=== PATIENT | female | born 1960 | race Caucasian/White ===

== ENCOUNTER 2016-07-16 20:42 | Inpatient (IN) | payer MEDICARE, MEDICAID ==
[~2016-07-16 20:42] MED LIST: ADVIL200 M1 PO; BP MED; DIABETA5 M1 PO; DICLOFENAC SODI75 MG PO; ENALAPRIL MALEA20 M1 PO; FLEXERIL10 MG PO; GLIPIZIDE10 M2 PO; GLUCOPHAGE500 MG PO; HYDROCHLOROTHIA25 M1 PO; IBUPROFEN100 M1 PO; JANUMET 50-1,01 EACH PO; LAMISIL250 MG PO; LANTUS SOL100 UNIT/1 SQ; METOPROLOL TART50 M2 PO; MOTRIN600 MG PO; NORCO 10/325 TA1 TAB PO; NORCO 5/325 TAB1 TAB PO; NORCO 7.5/3251 TAB PO; NORVASC5 M2 PO; PERCOCET 5/3251 TAB PO; PERCOCET 7.5-31 EAC1 PO; TYLENOL PM EX-S1 TAB PO; VASOTEC10 MG PO; VICODIN 5/500 T1 TAB PO
[2016-07-16 21:50] LABS: BASO % 0.3 % (0-2); EOS % 1.9 % (0-7); EOSINOPHIL ABSOLUTE COUNT 0.1 tho/cmm (0.0-0.7); HCT-HEMATOCRIT 42.7 % (34.0-49.0); HGB-HEMOGLOBIN 12.9 gm/dl (12.0-15.5); IMMATURE GRANULOCYTES ABSOLUTE 0.01 tho/cmm (0-0.03); IMMATURE GRANULOCYTES PERCENT 0.1 % (0-0.3); LYMPH % 13.9 % (20-45); MCH (MEAN CORPUSCULAR HGB) 29.5 pg (28.0-32.0); MCHC MEAN CORPUSCULAR HGB CONC 30.2 % (32.0-36.0); MCV (MEAN CELL VOLUME) 97.5 fl (82.0-96.0); MEAN PLATELET VOLUME 11.4 cmc (9.4-12.4); MONO % 8.8 % (0-12); MONOCYTE ABSOLUTE COUNT 0.6 tho/cmm (0.0-1.2); NEUTROPHIL ABSOLUTE COUNT 5.1 tho/cmm (1.6-8.0); NEUTROPHIL-AUTOMATED 5.1 tho/cmm (1.6-8.0); PLATELET COUNT 185 tho/cmm (150-450); RED BLOOD COUNT 4.38 mil/cmm (4.00-5.20); RED CELL DISTRIBUTION WIDTH 14.5 % (12.4-16.4); WHITE BLOOD COUNT 6.8 tho/cmm (4.0-10.0)
[2016-07-16 22:07] LABS: BLOOD UREA NITROGEN 67 mg/dl (6-24); CALCIUM 9.1 mg/dl (8.5-10.5); CARBON DIOXIDE-VENOUS 32 mmol/L (22-32); CHLORIDE 104 mmol/l (96-110); CREATININE 2.05 mg/dl (0.50-1.10); GLUCOSE 163 mg/dL (70-110); SODIUM 142 mmol/L (135-145); eGFR VALUE FOR BLACK 30 mL/Min
[2016-07-16 22:16] LABS: ANION GAP 12 mmol/L (0-20); MAGNESIUM 2.7 mg/dl (1.3-2.6); POTASSIUM 5.7 mmol/L (3.7-5.1)
[2016-07-16] MEDS ORDERED: ALL DAY ALLERGY10 M7 PO (22:48)
[2016-07-16] MEDS ORDERED: KLONOPIN0.5 M1 PO (22:49)
[2016-07-16] MEDS ORDERED: ASTAXANTHIN PO (22:49)
[2016-07-16] MEDS ORDERED: LASIX20 M1 PO (22:50)
[2016-07-16] MEDS ORDERED: TOPROL XL50 M1 PO (22:51)
[2016-07-16] MEDS ORDERED: LAMICTAL200 M2 PO (22:51)
[2016-07-16] MEDS ORDERED: PERCOCET 10-321 EACH PO (22:52)
[2016-07-16] MEDS ORDERED: POTASSIUM CHLO10 ME2 PO (22:53)
[2016-07-16] MEDS ORDERED: PROAIR RESPICL90 MCG INH (22:54)
[2016-07-16] MEDS ORDERED: RISPERDAL0.5 M2 PO (22:56)
[2016-07-16] MEDS ORDERED: PROVENTIL HFA6.7 G1 INH (22:56)
[2016-07-16] MEDS ORDERED: LANTUS100 UNITS/ SC (22:58)
[2016-07-16 23:53] LABS: URINE APPEARANCE CLEAR; URINE BILIRUBIN SMALL (NEG); URINE BLOOD MODERATE (NEG); URINE COLOR YELLOW; URINE GLUCOSE (UA) NEGATIVE (NEG); URINE KETONE NEGATIVE (NEG); URINE LEUKOCYTE ESTERASE NEGATIVE (NEG); URINE NITRITE NEGATIVE (NEG); URINE PROTEIN NEGATIVE (NEG); URINE SPECIFIC GRAVITY 1.025 (1.003-1.030)
[2016-07-17 00:05] LABS: URINE AMORPHOUS 2+.; URINE MUCUS 1+
[2016-07-17 03:49] LABS: ABG CO2 ARTERIAL 34 mmol/L (21-27); ARTERIAL BLD GAS O2 SATURATION 96 % (95-98); ARTERIAL BLOOD GAS PCO2 59 mmHg (32-45); ARTERIAL PO2 79 mmHg (70-100); BICARBONATE 32 mmol/L (21-28); BLOOD GAS BASE EXCESS 5 mM/L (-/+3); PH 7.35 Units (7.35-7.45)
[2016-07-17 03:57] LABS: BASO % 0.1 % (0-2); EOS % 1.8 % (0-7); EOSINOPHIL ABSOLUTE COUNT 0.1 tho/cmm (0.0-0.7); HCT-HEMATOCRIT 40.2 % (34.0-49.0); HGB-HEMOGLOBIN 12.1 gm/dl (12.0-15.5); IMMATURE GRANULOCYTES ABSOLUTE 0.01 tho/cmm (0-0.03); IMMATURE GRANULOCYTES PERCENT 0.1 % (0-0.3); LYMPH ABSOLUTE COUNT 1.2 tho/cmm (0.8-4.5); MCH (MEAN CORPUSCULAR HGB) 28.9 pg (28.0-32.0); MCHC MEAN CORPUSCULAR HGB CONC 30.1 % (32.0-36.0); MCV (MEAN CELL VOLUME) 96.2 fl (82.0-96.0); MONO % 10.5 % (0-12); MONOCYTE ABSOLUTE COUNT 0.7 tho/cmm (0.0-1.2); NEUTROPHIL ABSOLUTE COUNT 4.8 tho/cmm (1.6-8.0); NEUTROPHIL-AUTOMATED 4.8 tho/cmm (1.6-8.0); NEUTROPHILS % 70.5 % (40-80); PLATELET COUNT 175 tho/cmm (150-450); RED BLOOD COUNT 4.18 mil/cmm (4.00-5.20); RED CELL DISTRIBUTION WIDTH 14.5 % (12.4-16.4); WHITE BLOOD COUNT 6.8 tho/cmm (4.0-10.0)
[2016-07-17 04:10] LABS: PROTHROMBIN TIME 11.9 SECONDS (9.0-13.6)
[2016-07-17 04:37] LABS: ALB/GLOB RATIO 0.8 (0.8-2.0); ALBUMIN 3.3 g/dl (3.5-5.0); ALKALINE PHOSPHATASE 78 U/L (33-138); ALT/SGPT 31 U/L (12-78); ANION GAP 9 mmol/L (0-20); AST/SGOT 18 U/L (10-40); BILIRUBIN,TOTAL 0.4 mg/dl (0-1.5); BLOOD UREA NITROGEN 66 mg/dl (6-24); CALCIUM 8.9 mg/dl (8.5-10.5); CARBON DIOXIDE-VENOUS 35 mmol/L (22-32); CHLORIDE 105 mmol/l (96-110); CHOLESTEROL 132 mg/dl (120-200); CREATININE 1.89 mg/dl (0.50-1.10); GLUCOSE 139 mg/dL (70-110); HDL CHOLESTEROL 48 mg/dl (40-60); LDL CHOLESTEROL 65 mg/dl (0-99); MAGNESIUM 2.7 mg/dl (1.3-2.6); PHOSPHOROUS 4.8 mg/dl (2.5-4.9); POTASSIUM 4.9 mmol/L (3.7-5.1); SODIUM 144 mmol/L (135-145); TRIGLYCERIDES 97 mg/dl (<149); VLDL 19 mg/dl (0-30); eGFR VALUE FOR BLACK 34 mL/Min
[2016-07-18 05:38] LABS: ABG CO2 ARTERIAL 37 mmol/L (21-27); ARTERIAL BLD GAS O2 SATURATION 97 % (95-98); BICARBONATE 35 mmol/L (21-28); BLOOD GAS BASE EXCESS 7 mM/L (-/+3); PH 7.31 Units (7.35-7.45)
[2016-07-18 05:41] LABS: ARTERIAL PO2 93 mmHg (70-100)
[2016-07-18 05:45] LABS: ARTERIAL BLOOD GAS PCO2 71 mmHg (32-45)
[2016-07-18 05:46] LABS: ANION GAP 9 mmol/L (0-20); BLOOD UREA NITROGEN 43 mg/dl (6-24); CALCIUM 9.3 mg/dl (8.5-10.5); CARBON DIOXIDE-VENOUS 35 mmol/L (22-32); CHLORIDE 106 mmol/l (96-110); GLUCOSE 97 mg/dL (70-110); MAGNESIUM 2.9 mg/dl (1.3-2.6); POTASSIUM 4.4 mmol/L (3.7-5.1); SODIUM 146 mmol/L (135-145); eGFR VALUE FOR BLACK 58 mL/Min
[2016-07-18 05:55] LABS: CREATININE 1.19 mg/dl (0.50-1.10)
[2016-07-19 04:17] LABS: ABG CO2 ARTERIAL 37 mmol/L (21-27); ARTERIAL BLD GAS O2 SATURATION 98 % (95-98); ARTERIAL PO2 96 mmHg (70-100); BICARBONATE 35 mmol/L (21-28); BLOOD GAS BASE EXCESS 7 mM/L (-/+3); PH 7.32 Units (7.35-7.45)
[2016-07-19 04:20] LABS: ARTERIAL BLOOD GAS PCO2 70 mmHg (32-45)
[2016-07-19 04:54] LABS: HGB-HEMOGLOBIN 11.9 gm/dl (12.0-15.5); PLATELET COUNT 162 tho/cmm (150-450)
[2016-07-19 05:22] LABS: BLOOD UREA NITROGEN 28 mg/dl (6-24); CALCIUM 8.9 mg/dl (8.5-10.5); CARBON DIOXIDE-VENOUS 35 mmol/L (22-32); CHLORIDE 104 mmol/l (96-110); CREATININE 1.06 mg/dl (0.50-1.10); PHOSPHOROUS 3.2 mg/dl (2.5-4.9); SODIUM 143 mmol/L (135-145); eGFR VALUE FOR BLACK 67 mL/Min
[2016-07-19 05:25] LABS: ANION GAP 9 mmol/L (0-20); GLUCOSE 234 mg/dL (70-110); POTASSIUM 4.8 mmol/L (3.7-5.1)
[2016-07-19 05:57] LABS: ABG CO2 ARTERIAL 36 mmol/L (21-27); ARTERIAL BLD GAS O2 SATURATION 99 % (95-98); ARTERIAL BLOOD GAS PCO2 68 mmHg (32-45); BICARBONATE 34 mmol/L (21-28); BLOOD GAS BASE EXCESS 6 mM/L (-/+3); PH 7.32 Units (7.35-7.45)
[2016-07-19 05:59] LABS: ARTERIAL PO2 113 mmHg (70-100)
[2016-07-20 05:44] LABS: BASO % 0.3 % (0-2); EOS % 2.4 % (0-7); EOSINOPHIL ABSOLUTE COUNT 0.2 tho/cmm (0.0-0.7); HCT-HEMATOCRIT 40.6 % (34.0-49.0); HGB-HEMOGLOBIN 12.3 gm/dl (12.0-15.5); IMMATURE GRANULOCYTES ABSOLUTE 0.01 tho/cmm (0-0.03); IMMATURE GRANULOCYTES PERCENT 0.2 % (0-0.3); LYMPH % 21.3 % (20-45); LYMPH ABSOLUTE COUNT 1.3 tho/cmm (0.8-4.5); MCH (MEAN CORPUSCULAR HGB) 28.9 pg (28.0-32.0); MCHC MEAN CORPUSCULAR HGB CONC 30.3 % (32.0-36.0); MCV (MEAN CELL VOLUME) 95.5 fl (82.0-96.0); MEAN PLATELET VOLUME 10.7 cmc (9.4-12.4); MONO % 9.9 % (0-12); MONOCYTE ABSOLUTE COUNT 0.6 tho/cmm (0.0-1.2); NEUTROPHIL ABSOLUTE COUNT 4.1 tho/cmm (1.6-8.0); NEUTROPHIL-AUTOMATED 4.1 tho/cmm (1.6-8.0); NEUTROPHILS % 65.9 % (40-80); PLATELET COUNT 168 tho/cmm (150-450); RED BLOOD COUNT 4.25 mil/cmm (4.00-5.20); RED CELL DISTRIBUTION WIDTH 13.8 % (12.4-16.4); WHITE BLOOD COUNT 6.2 tho/cmm (4.0-10.0)
[2016-07-20 05:51] LABS: ANION GAP 5 mmol/L (0-20); BLOOD UREA NITROGEN 21 mg/dl (6-24); CALCIUM 9.1 mg/dl (8.5-10.5); CARBON DIOXIDE-VENOUS 36 mmol/L (22-32); CHLORIDE 104 mmol/l (96-110); GLUCOSE 157 mg/dL (70-110); POTASSIUM 4.7 mmol/L (3.7-5.1); SODIUM 140 mmol/L (135-145); eGFR VALUE FOR BLACK 82 mL/Min
[2016-07-21 03:38] LABS: URINE BILIRUBIN NEGATIVE (NEG); URINE BLOOD SMALL (NEG); URINE GLUCOSE (UA) NEGATIVE (NEG); URINE KETONE NEGATIVE (NEG); URINE LEUKOCYTE ESTERASE NEGATIVE (NEG); URINE NITRITE NEGATIVE (NEG); URINE PH 6.5 (5.0-8.0); URINE PROTEIN NEGATIVE (NEG)
[2016-07-21 03:44] LABS: URINE SODIUM-RANDOM 38 mmol/L (20-110)
[2016-07-21 03:45] LABS: URINE TOTAL PROTEIN-RANDOM <5.0 mg/dl (<11.8)
[2016-07-21 03:54] LABS: URINE APPEARANCE CLEAR; URINE COLOR YELLOW
[2016-07-21 03:55] LABS: URINE EPITHELIAL CELLS 0 /[HPF] (0-10); URINE RBC 0-1 /[HPF] (0-5); URINE WBC 0 /[HPF] (0-5)
[2016-07-21 04:56] LABS: ABG CO2 ARTERIAL 38 mmol/L (21-27); ARTERIAL BLD GAS O2 SATURATION 98 % (95-98); ARTERIAL BLOOD GAS PCO2 65 mmHg (32-45); BICARBONATE 36 mmol/L (21-28); BLOOD GAS BASE EXCESS 8 mM/L (-/+3); PH 7.36 Units (7.35-7.45)
[2016-07-21 05:05] LABS: ARTERIAL PO2 98 mmHg (70-100)
[2016-07-21 06:16] LABS: HGB-HEMOGLOBIN 12.3 gm/dl (12.0-15.5); PLATELET COUNT 169 tho/cmm (150-450)
[2016-07-21 06:28] LABS: ANION GAP 11 mmol/L (0-20); BLOOD UREA NITROGEN 15 mg/dl (6-24); CALCIUM 9.3 mg/dl (8.5-10.5); CARBON DIOXIDE-VENOUS 35 mmol/L (22-32); CHLORIDE 103 mmol/l (96-110); CREATININE 0.85 mg/dl (0.50-1.10); GLUCOSE 160 mg/dL (70-110); POTASSIUM 4.5 mmol/L (3.7-5.1); SODIUM 144 mmol/L (135-145); eGFR VALUE FOR BLACK 88 mL/Min
[2016-07-26 05:54] LABS: BASO % 0.6 % (0-2); EOS % 3.7 % (0-7); EOSINOPHIL ABSOLUTE COUNT 0.2 tho/cmm (0.0-0.7); HCT-HEMATOCRIT 42.3 % (34.0-49.0); HGB-HEMOGLOBIN 12.7 gm/dl (12.0-15.5); IMMATURE GRANULOCYTES ABSOLUTE 0.01 tho/cmm (0-0.03); IMMATURE GRANULOCYTES PERCENT 0.2 % (0-0.3); LYMPH % 23.3 % (20-45); LYMPH ABSOLUTE COUNT 1.3 tho/cmm (0.8-4.5); MCH (MEAN CORPUSCULAR HGB) 28.9 pg (28.0-32.0); MCV (MEAN CELL VOLUME) 96.1 fl (82.0-96.0); MEAN PLATELET VOLUME 11.2 cmc (9.4-12.4); MONO % 12.5 % (0-12); MONOCYTE ABSOLUTE COUNT 0.7 tho/cmm (0.0-1.2); NEUTROPHIL ABSOLUTE COUNT 3.2 tho/cmm (1.6-8.0); NEUTROPHIL-AUTOMATED 3.2 tho/cmm (1.6-8.0); NEUTROPHILS % 59.7 % (40-80); PLATELET COUNT 141 tho/cmm (150-450); RED CELL DISTRIBUTION WIDTH 13.6 % (12.4-16.4); WHITE BLOOD COUNT 5.4 tho/cmm (4.0-10.0)
[2016-07-26 06:08] LABS: ANION GAP 8 mmol/L (0-20); BLOOD UREA NITROGEN 9 mg/dl (6-24); CALCIUM 8.9 mg/dl (8.5-10.5); CARBON DIOXIDE-VENOUS 36 mmol/L (22-32); CHLORIDE 101 mmol/l (96-110); CREATININE 0.88 mg/dl (0.50-1.10); GLUCOSE 173 mg/dL (70-110); SODIUM 141 mmol/L (135-145); eGFR VALUE FOR BLACK 84 mL/Min
[2016-07-28 05:25] LABS: BASO % 0.6 % (0-2); EOS % 3.2 % (0-7); EOSINOPHIL ABSOLUTE COUNT 0.2 tho/cmm (0.0-0.7); HCT-HEMATOCRIT 41.4 % (34.0-49.0); HGB-HEMOGLOBIN 12.6 gm/dl (12.0-15.5); IMMATURE GRANULOCYTES ABSOLUTE 0.01 tho/cmm (0-0.03); IMMATURE GRANULOCYTES PERCENT 0.2 % (0-0.3); LYMPH % 22.7 % (20-45); LYMPH ABSOLUTE COUNT 1.1 tho/cmm (0.8-4.5); MCHC MEAN CORPUSCULAR HGB CONC 30.4 % (32.0-36.0); MCV (MEAN CELL VOLUME) 95.2 fl (82.0-96.0); MEAN PLATELET VOLUME 11.3 cmc (9.4-12.4); MONO % 12.1 % (0-12); MONOCYTE ABSOLUTE COUNT 0.6 tho/cmm (0.0-1.2); NEUTROPHIL ABSOLUTE COUNT 3.1 tho/cmm (1.6-8.0); NEUTROPHIL-AUTOMATED 3.1 tho/cmm (1.6-8.0); NEUTROPHILS % 61.2 % (40-80); PLATELET COUNT 156 tho/cmm (150-450); RED BLOOD COUNT 4.35 mil/cmm (4.00-5.20); RED CELL DISTRIBUTION WIDTH 13.5 % (12.4-16.4)
[2016-07-28 05:52] LABS: ANION GAP 10 mmol/L (0-20); BLOOD UREA NITROGEN 8 mg/dl (6-24); CALCIUM 8.9 mg/dl (8.5-10.5); CARBON DIOXIDE-VENOUS 37 mmol/L (22-32); CHLORIDE 98 mmol/l (96-110); GLUCOSE 206 mg/dL (70-110); MAGNESIUM 2.4 mg/dl (1.3-2.6); SODIUM 141 mmol/L (135-145)
[2016-07-28 05:53] LABS: CREATININE 0.78 mg/dl (0.50-1.10); eGFR VALUE FOR BLACK >90 mL/Min
[2016-07-30] MEDS ORDERED: IPRAT-ALBUT 0.5-3 ML NEB ×2 (12:13→12:15)
[2016-07-30] MEDS ORDERED: NYAMYC15 GM EXT (12:13)
[2016-07-30] MEDS ORDERED: NICOTINE PATCH1 EAC2 TP (12:16)
[2016-07-30] MEDS ORDERED: PERCOCET 10-321 EACH PO (12:19)
[2016-07-30] MEDS ORDERED: TYLENOL325 M2 PO (12:21)
[2016-07-30] MEDS ORDERED: LASIX40 M1 PO (12:23)
[2016-07-30] MEDS ORDERED: MIRALAX17 G2 PO (12:23)
[2016-07-30] MEDS ORDERED: LEVEMIR100 UNITS/ SC (12:24)
[2016-07-30] MEDS ORDERED: NOVOLOG100 UNITS/ SC (12:26)
== END 2016-07-30 12:45 | DRG 189 ==
LOC: EDMED 20:42 → EMR2 07-17 00:01 → CCU 07-17 02:57 → PCUB 07-17 20:50
PROVIDERS: Emergency Medicine; Internal Medicine; Internal Medicine Pulmonary Disease; Registered Nurse; ADMIT Hospitalist
DX: J96.21 Acute and chronic respiratory failure with hypoxia (principal); I50.33 Acute on chronic diastolic (congestive) heart failure; E11.22 Type 2 diabetes mellitus with diabetic chronic kidney disease; E11.649 Type 2 diabetes mellitus with hypoglycemia without coma; N17.9 Acute kidney failure, unspecified; I27.2 Other secondary pulmonary hypertension; Z68.43 Body mass index [BMI] 50.0-59.9, adult; N18.3 Chronic kidney disease, stage 3 (moderate); I13.0 Hypertensive heart and chronic kidney disease with heart failure and stage 1 through stage 4 chronic kidney disease, or unspecified chronic kidney disease; E66.01 Morbid (severe) obesity due to excess calories; M16.11 Unilateral primary osteoarthritis, right hip; J44.9 Chronic obstructive pulmonary disease, unspecified; B36.9 Superficial mycosis, unspecified; F60.3 Borderline personality disorder; F41.9 Anxiety disorder, unspecified; F17.210 Nicotine dependence, cigarettes, uncomplicated; G89.29 Other chronic pain; K59.03 Drug induced constipation; T40.605A Adverse effect of unspecified narcotics, initial encounter; Z86.73 Personal history of transient ischemic attack (TIA), and cerebral infarction without residual deficits; Z98.1 Arthrodesis status; H54.7 Unspecified visual loss; Z79.4 Long term (current) use of insulin; Z79.84 Long term (current) use of oral hypoglycemic drugs; Z66 Do not resuscitate; G47.33 Obstructive sleep apnea (adult) (pediatric); F32.9 Major depressive disorder, single episode, unspecified; J96.22 Acute and chronic respiratory failure with hypercapnia
CPT/HCPCS: A9540; A9558; J0456; J1644; J1650; J1815; J1940; J2405; J7050; P9612